=== PATIENT | female | born 1970 | race Caucasian/White ===

== ENCOUNTER 2016-10-04 07:20 | Emergency (ER) | payer OTHER ==
[~2016-10-04] VITALS: Ht 165.1 cm; Wt 75.0 kg
[2016-10-04 07:25] VITALS: BP 117/81; PULSE 89; RESP 17; O2SAT 100
--- NOTE | 2016-10-04 07:55 | ED.REPORT ---
HPI-General Illness Date of Service Oct 04, 2016 ED Provider: Jamie Le MD Patient is an otherwise healthy 46 year old female who presents to the ED complaining of malaise onset a few weeks ago. She was on a boat in [place] for several weeks during the onset of her symptoms. Associated symptoms include headache with photophobia, diaphoresis, and nausea onset 6 days ago. She also reports chest tightness this morning which she attributes to anxiety. She denies abdominal pain, vomiting, numbness, weakness, fever, or any other symptoms. Patient denies mechanism of injury. She was seen at [facility] yesterday and prescribed lisinopril, iron, progesterone, hydrochlorothiazide, and butalbital. She took single doses last night around 1999 and did not take any this morning. The butalbital provided relief for a few hours but her symptoms returned in the middle of the night. She was prescribed lisinopril due to a sitting BP of 136/60 and standing BP of 165/104 standing. Patient's period is due soon. She has been getting headaches the week before her period for the last few months. Nursing Notes Stated Complaint: NAUSEA/SWEATING Chief Complaint: General Complaint Nursing Notes Reviewed: Yes Allergies: Coded Allergies: codeine (Verified Adverse Reaction, Mild, N/V, 12/22/08) hydrocodone (Verified Adverse Reaction, Mild, N/V, 12/22/08) oxycodone (Verified Adverse Reaction, Mild, N/V, 12/22/08) General Time Seen by MD: 07:27 Chief Complaint Multip medical complaints Hx Obtained From: Patient Arrived By: Walk-in Sudden in Onset?: No Onset Occurred: More than a week ago... Symptom Duration: Since onset Past Medical History Past Medical History Notes: No PCP Past Medical History Otherwise healthy Past Surgical History None reported Family History Reports: Coronary artery disease Smoking History Never Smoker Social History Alcohol Use: 1-3 per week Drug Use: THC Ambulatory Status Independent Review of Systems +Chest tightness which patient attributes to anxiety Full Review of Systems Constitutional: Reports: Malaise, Denies: Fever Eyes: Reports: Photophobia GI: Reports: Nausea, Denies: Abdominal pain, Vomiting Skin: Reports Diaphoresis Neurologic: Reports: Headache, Denies: Numbness, Weakness Complete sys rev & neg: except as marked. Physical Exam Vital Signs Vital Signs Date Time Temp Pulse Resp B/P Pulse Ox O2 Delivery O2 Flow Rate FiO2 10/04/16 12:51 84 14 113/68 100 Room Air 10/04/16 11:10 36.4 94 16 93/62 96 Room Air 10/04/16 07:25 36.9 89 17 117/81 100 Room Air Initial VS: Reviewed, Vital signs normal Psychiatric: Mood/affect normal, Behavior normal, Normal thought content General/Constitutional: Awake, Alert, No acute distress, Well appearing, Well developed, Cooperative, Not toxic appearing Head / Eyes: Atraumatic, Normocephalic no facial rash or asymmetry Neck: Atraumatic, Supple, No meningismus, Full range of motion, No adenopathy Respiratory / Chest: Atraumatic, Breath sounds NL, Breath sounds = bilat, No respiratory distress Cardiovascular: Heart rate NL, Regular rhythm, Heart sounds NL Abdomen: Atraumatic, Soft, Non-tender Upper Extremities Upper Extremity / MS: Atraumatic, Inspection NL Lower Extremity / Pelvis / MS: Atraumatic, Inspection NL Skin: Atraumatic, No rash, Warm, Dry Neurologic: Oriented X3, Speech NL, CN II - XII intact, Cerebellar NL, Gait NL Interpretation & Diagnostics Lab Results Interpretation Result Diagram: 10/04/16 0955 10/04/16 0955 Test 10/04/16 09:55 White Blood Count 8.2th/mm3 (3.8-10.1) Red Blood Count 4.57mil/mm3 (3.90-5.20) Hemoglobin 13.0g/dL (12.0-15.6) Hematocrit 37.8% (35.0-46.0) Mean Corpuscular Volume 82.7fL (81-100) Mean Corpuscular Hemoglobin 28.4pg (27.0-35.0) Mean Corpuscular Hemoglobin Concent 34.4% (32.0-37.0) Red Cell Distribution Width 12.2% (12.3-15.4) Platelet Count 242bil/L (150-400) Neutrophils (%) (Auto) 79.5% (40-74) Lymphocytes (%) (Auto) 15.5% (14-46) Monocytes (%) (Auto) 3.8% (4-12) Eosinophils (%) (Auto) 0.6% (0-5) Basophils (%) (Auto) 0.4% (0-3) Sodium Level 141mEq/L (134-144) Potassium Level 4.2mEq/L (3.5-5.2) Chloride Level 104mEq/L (97-108) Carbon Dioxide Level 19mmol/L (18-29) Blood Urea Nitrogen 14mg/dL (6-24) Creatinine 0.58mg/dL (0.57-1.00) Estimat Glomerular Filtration Rate 160mL/min (>59) Glucose Level 105mg/dL (60-99) Calcium Level 8.8mg/dL (8.5-10.1) Total Bilirubin 0.4mg/dL (0.0-1.2) Aspartate Amino Transf (AST/SGOT) 16U/L (0-50) Alanine Aminotransferase (ALT/SGPT) 14U/L (0-32) Alkaline Phosphatase 56U/L (25-150) Total Protein 7.0g/dL (6.4-8.4) Albumin 4.5g/dL (3.4-5.0) Thyroid Stimulating Hormone (TSH) 3.040uIU/mL (0.450-4.500) Re-Eval/Medical Decision Time of Eval: 09:30 Patient Status: Moderate relief Re-Evaluation/Progress Note: Patient rechecked. Patient is feeling somewhat better after taking medication. Patient denies any drowsiness or nausea. Patients SINGLETON was reduced to a 2/10 but is now slightly returning. Patient would like labs drawn in the department. Patient understands and agrees with plan. All questions addressed. Time of Eval: 10:19 Re-Evaluation/Progress Note: Passed patient walking in hallway. Patient was smiling, alert, and looks well. Time of Eval: 11:44 Patient Status: Condition unchanged Re-Evaluation/Progress Note: Though initially improved, the headache now is back to baseline. Nausea remains resolved. We will add on Haldol 2 mg IV and reassess. Counseled Regarding: Diagnosis, Lab results, Need for follow-up, When/why to return to ED Discharge & Departure Primary Impression: Headache Headache type: unspecified Headache chronicity pattern: unspecified pattern Intractability: not intractable Qualified Code: R51 - Headache Additional Impressions: Nausea Vertigo Disposition: Home Discharge Condition All VS Reviewed: Yes Condition: Improved Patient Instructions: Acute Headache (ED) Additional Instructions: No dangerous cause for your headache is suspected at this time. I expect that your headache will improve as the day progresses. I recommend follow-up with Dr. Main in the coming days. Further evaluation may be required, but I suspect that the cause for your headache is benign at this time. Referrals: Peyman Main MD Attestation Portions of this note were transcribed by Jovita Baptiste and Mervin Hart. I, Dr. Le personally performed the history, physical exam and medical decision-making; I reviewed and confirmed the accuracy of the information in the transcribed note. Signed by: Azam Quiros, 10/04/16 copies to: Peyman Main MD, Kirk H MD Oct 04, 2016 07:55 Jovita Baptiste Oct 04, 2016 08:44 MERVIN HART Oct 04, 2016 08:46
[2016-10-04] MEDS ORDERED: 0.9% Sodium Chloride 1,000 ML IV ONE (08:12)
[2016-10-04] MEDS ORDERED: MetoCLOpramide 5 mg/mL 2 mL Inj IVPUSH ONE (08:15)
[2016-10-04] MEDS ORDERED: Dexamethasone 10 mg/mL Inj IVPUSH ONE (08:15)
[2016-10-04] MEDS ORDERED: Acetaminophen IV 1,000 MG in IV Premix 1 EACH IV ONE (08:15)
[2016-10-04 10:17] LABS: BASOPHILS % (AUTO) 0.4 % (0-3); EOSINOPHILS % (AUTO) 0.6 % (0-5); MONOCYTES % (AUTO) 3.8 % (4-12); Mean Corpuscular Hemoglobin 28.4 pg (27.0-35.0); Mean Corpuscular Volume 82.7 fL (81-100); NEUTROPHILS % (AUTO) 79.5 % (40-74); Platelet Count 242 bil/L (150-400)
[2016-10-04 11:10] VITALS: BP 93/62; PULSE 94; RESP 16; O2SAT 96
[2016-10-04] MEDS ORDERED: Haloperidol 5 mg/mL Inj IVPUSH ONE (11:45)
[2016-10-04 12:51] VITALS: BP 113/68; PULSE 84; RESP 14; O2SAT 100
== END 2016-10-04 12:45 | disposition home or self-care (01) ==
LOC: SED 07:20
DX: R51 Headache (principal); R11.0 Nausea; R42 Dizziness and giddiness; F41.9 Anxiety disorder, unspecified; F12.10 Cannabis abuse, uncomplicated; Z88.5 Allergy status to narcotic agent
CPT/HCPCS: 36415; 80053; 84443; 85025; 96361; 96374; 96375; 99285; J0131; J1100; J1200; J1630; J1885; J2765; J7030